=== PATIENT | male | born 2000 | race Caucasian/White ===

== ENCOUNTER 2022-06-07 11:55 | Emergency (ER) | payer SELFPAY ==
[2022-06-07 13:42] LABS: SARS-COV-2 RT PCR NEGATIVE (NEGATIVE)
--- NOTE | 2022-06-07 14:42 | EDPHYS ---
Physician Documentation [facility] Name: Aman Handley Age: 21 yrs Sex: Male : 2000 Arrival Date: 06/07/2022 Time: 12:00 Bed IW5 Private MD: ED Physician Cyrus Read HPI: 06/07 19:56 This 21 yrs old Male presents to ER via Ambulatory with complaints of Cough. kb 19:56 The patient or guardian reports cough, that is intermittent, described as moderate. kb Onset: The symptoms/episode began/occurred 6 day(s) ago. Severity of symptoms: At their worst the symptoms were moderate, in the emergency department the symptoms are unchanged. Modifying factors: The symptoms are alleviated by nothing, the symptoms are aggravated by nothing. Associated signs and symptoms: Pertinent positives: sore throat, Pertinent negatives: chest pain, diarrhea, ear ache, fever, nausea, rhinorrhea, vomiting. The patient has not experienced similar symptoms in the past. The patient has not recently seen a physician. Pt reports sore throat, cough and congestion for 6 days. . Historical: - Allergies: 12:40 No Known Allergies; ss - Home Meds: 12:40 None [Active]; ss - PMHx: 12:40 ADHD; ss - PSHx: 12:40 jaw repair; ss - Immunization history:: Client reports receiving the 2nd dose of the Covid vaccine. - Social history:: Smoking status: Reported history of juuling and/or vaping. ROS: 19:56 Constitutional: Negative for fever, chills, and weight loss. kb 19:56 ENT: Positive for rhinorrhea, sinus congestion, sore throat. 19:56 Respiratory: Positive for cough. 19:56 All other systems are negative. Exam: 19:56 Constitutional: This is a well developed, well nourished patient who is awake, alert, kb and in no acute distress. Head/Face: Normocephalic, atraumatic. ENT: Moist Mucous membranes Cardiovascular: Regular rate and rhythm with a normal S1 and S2. No gallops, murmurs, or rubs. No pulse deficits. Respiratory: Respirations even and unlabored. No increased work of breathing. Talking in full sentences Abdomen/GI: Soft, non-tender. No distention Skin: Warm, dry with normal turgor. Normal color. MS/ Extremity: Pulses equal, no cyanosis. Neurovascular intact. Full, normal range of motion. Neuro: Awake and alert, GCS 15, oriented to person, place, time, and situation. Moves all extremities. Normal gait. Vital Signs: 12:41 Pulse 93; Resp 20; Temp 98.5(O); Pulse Ox 100% on R/A; Weight 172.37 kg; Height 6 ft. 0 ss in. (182.88 cm); 12:41 Body Mass Index 51.54 (172.37 kg, 182.88 cm) ss MDM: 12:00 Patient medically screened. ms3 19:55 Data reviewed: vital signs, nurses notes. Data interpreted: Pulse oximetry: on room air kb is 100 %. Interpretation: normal. Counseling: I had a detailed discussion with the patient and/or guardian regarding: the historical points, exam findings, and any diagnostic results supporting the discharge/admit diagnosis, lab results, the need for outpatient follow up, a family practitioner, to return to the emergency department if symptoms worsen or persist or if there are any questions or concerns that arise at home. 06/07 12:44 Order name: COVID-19/FLU A+B; Complete Time: 13:43 kb 06/07 12:44 Order name: Strep; Complete Time: 13:16 kb 06/07 13:18 Order name: Throat Culture EDMS Administered Medications: No medications were administered Disposition Summary: 06/07/22 14:41 Discharge Ordered Location: Home kb Condition: Stable kb Diagnosis - Acute upper respiratory infection, unspecified kb - Otitis media, unspecified, right ear kb Followup: kb - With: Emergency Department - When: As needed - Reason: Worsening of condition Followup: kb - With: Private Physician - When: 2 - 3 days - Reason: Recheck today's complaints, Continuance of care, Re-evaluation by your physician Discharge Instructions: - Discharge Summary Sheet kb - Otitis Media, Adult, [id number] kb - Upper Respiratory Infection, Adult, [id number] kb Forms: - Medication Reconciliation Form kb - Thank You Letter kb - Antibiotic Education kb - Prescription Opioid Use kb - Work release form iw Prescriptions: - Amoxicillin 875 mg Oral Tablet - take 1 tablet by ORAL route every 12 hours for 10 days; 20 tablet; Refills: 0, kb Product Selection Permitted Addendum: 06/11/2022 02:39 Co-signature as Attending Physician, Cyrus Read DO I was immediately available onsite m s3 in the emergency department for consultation in the care of the patient. Signatures: Dispatcher [employer] Vidhi San, ALVA LAMBERT-Lynn Morillo RN RN Aden Blackwood RN RN jd3 Sims, Marcus, DO DO ms3 Corrections: (The following items were deleted from the chart) 06/07 12: 12:00 Social history: Smoking status: Reported history of juuling and/or vaping. [place] [id number] : 12:00 Immunization history: Adult Immunizations up to date, Client reports having NOT [facility] received the Covid vaccine. Flu vaccine is not up to date. j 12:04 Allergies: No Known Allergies; [facility] j 12:04 Home Meds: None; [place] [address] 12:04 Home Meds: Adderall XR 30 mg Oral cp24 1 cap once daily [Inactive]; j jd3 12:04 PMHx: ADD/ADHD; j j 12:04 PSHx: Tonsillectomy; j j
--- NOTE | 2022-06-07 14:42 | ER ---
Nurse's Notes [facility] Name: Aman Handley Age: 21 yrs Sex: Male : 2000 Arrival Date: 06/07/2022 Time: 12:00 Bed IW5 Private MD: Diagnosis: Acute upper respiratory infection, unspecified;Otitis media, unspecified, right ear Presentation: 06/07 12:40 Chief complaint: Patient states: sore throat and cough x 6 days. Coronavirus screen: ss Client denies travel out of the [place] in the last 14 days. Ebola Screen: Patient denies exposure to infectious person. Patient denies travel to an Ebola-affected area in the 21 days before illness onset. Initial Sepsis Screen: Does the patient meet any 2 criteria? No. Patient's initial sepsis screen is negative. Does the patient have a suspected source of infection? No. Patient's initial sepsis screen is negative. Risk Assessment: Do you want to hurt yourself or someone else? Patient reports no desire to harm self or others. Onset of symptoms was June 01, 2022. 12:40 Method Of Arrival: Ambulatory ss 12:40 Acuity: RUSS 4 Historical: - Allergies: 12:40 No Known Allergies; - Home Meds: 12:40 None [Active]; ss - PMHx: 12:40 ADHD; ss - PSHx: 12:40 jaw repair; ss - Immunization history:: Client reports receiving the 2nd dose of the Covid vaccine. - Social history:: Smoking status: Reported history of juuling and/or vaping. Vital Signs: 12:41 Pulse 93; Resp 20; Temp 98.5(O); Pulse Ox 100% on R/A; Weight 172.37 kg; Height 6 ft. 0 ss in. (182.88 cm); 12:41 Body Mass Index 51.54 (172.37 kg, 182.88 cm) ED Course: 12:00 Cyrus Read DO is Attending Physician. ms3 12:01 Vidhi Leon FNP-C is PHCP. kb 12:40 Arm band placed on right wrist. ss 15:09 Violetta Najera, RN is Primary Nurse. iw Administered Medications: No medications were administered Outcome: 14:41 Discharge ordered by . kb 15:18 Patient left the ED. iw Signatures: Vidhi Leon, SUPERVISOR PROCESS TESTING-C SUPERVISOR PROCESS TESTING-Ckb Violetta Najera RN CHELA Lynn Lackey RN RN ss Davies, Jonathon, RN RN jd3 Sims, Marcus, DO DO ms3 Corrections: (The following items were deleted from the chart) 12: Chief complaint: EMS states: "pt had a fall from about 8 feet off a ladder. the jd3 pt landed on her feet reporting that she hurt her right knee and right toes. she reports pain and numbness to right knee and right toes. no LOC or hit to head or back." j : 12: Coronavirus screen: At this time, the client does not indicate any symptoms jd3 associated with coronavirus-19. [facility] : 12: Ebola Screen: No symptoms or risks identified at this time. [place] [address] : 12: Initial Sepsis Screen: Does the patient meet any 2 criteria? No. Patient's [facility] initial sepsis screen is negative. Does the patient have a suspected source of infection? No. Patient's initial sepsis screen is negative. j : 12: Risk Assessment: Do you want to hurt yourself or someone else? Patient reports no jd3 desire to harm self or others. [facility] 12:00 Onset of symptoms was June 07, 2022 [place] [address] 12:00 Method Of Arrival: EMS: [facility] [place] [address] 12:00 Acuity: RUSS 3 [place] [address] 12: 12:00 Social history: Smoking status: Reported history of juuling and/or vaping. [place] [address] 12:00 Immunization history: Adult Immunizations up to date, Client reports having NOT jd3 received the Covid vaccine. Flu vaccine is not up to date. j 12:04 Allergies: No Known Allergies; j j 12:04 Home Meds: None; j j 12:04 Home Meds: Adderall XR 30 mg Oral cp24 1 cap once daily [Inactive]; jd3 jd3 12:04 PMHx: ADD/ADHD; jd3 jd3 12:04 PSHx: Tonsillectomy; jd3 j : 12:00 Patient arrived in ED. jd3 jd3 12:04 Triage completed. jd3 jd3 12: 12:05 BP 130 / 62; Pulse 89bpm; Resp 18bpm; Spontaneous; Pulse Ox 99% RA; Temp 97.2F jd3 Temporal; 151.95 kg Reported; Height 5 ft. 3 in. Reported; BMI: 59.3; Pain 5/10; jd3 12: 12:05 Arm band placed on jd3 jd3
[2022-06-07 15:28] VITALS: TEMP 98.5; O2SAT 100
== END 2022-06-07 15:18 | disposition home or self-care (01) ==
LOC: ER 11:55
DX: J06.9 Acute upper respiratory infection, unspecified (principal); H66.91 Otitis media, unspecified, right ear; Z20.822 Contact with and (suspected) exposure to COVID-19
CPT/HCPCS: 0240U; 87070; 87081; 99281